=== PATIENT | female | born 1955 | race Caucasian/White ===

== ENCOUNTER 2018-12-05 17:19 | Inpatient (IN) | payer MEDICARE ==
[~2018-12-05] VITALS: Ht 158.8 cm; Wt 63.6 kg
[~2018-12-05 17:19] MED LIST: ANAS1TAB PO; ATOR10TA65 PO; DEXA4TAB PO; DICY10CA40 ORAL; FURO-110 PO; OMEP40CA6 PO; ONDA8TAB9 PO; SPIR25TA PO; ZOLP5TAB PO
[2018-12-05] MEDS ORDERED: SOD CHLORIDE 0.9% 1,000 ML IV STA (18:07)
[2018-12-05] MEDS ORDERED: ONDANSETRON 4 MG INJ IV STA (18:07)
[2018-12-05] MEDS ORDERED: NACL 0.9% 3 ML SYG IV SCH (21:30)
[2018-12-05] MEDS ORDERED: ACETAMINOPHEN 325 MG TAB PO PRN (21:30)
[2018-12-05] MEDS: HEPARIN 5,000 UNIT/1 ML VIAL SC SCH (21:59)
[2018-12-05] MEDS: SOD CHLORIDE 0.9% 1,000 ML IV SCH (21:59)
[2018-12-05] MEDS ORDERED: SOD CHLORIDE 0.9% 500 ML IV ONE (22:30)
[2018-12-06 00:50] VITALS: Ht 158.8 cm; Wt 63.6 kg
[2018-12-06 01:18] VITALS: BP 117/66; PULSE 93; RESP 18
[2018-12-06] MEDS ORDERED: ZOLPIDEM 5 MG TAB PO ONE (01:30)
[2018-12-06 04:35] VITALS: BP 94/56; PULSE 98; RESP 16
[2018-12-06] MEDS: HEPARIN 5,000 UNIT/1 ML VIAL SC SCH (06:00)
[2018-12-06] MEDS: ALBUMIN HUMAN 25% 100 ML IV SCH ×2 (06:25→09:18)
[2018-12-06] MEDS: PANTOPRAZOLE (EC) 40 MG TAB PO SCH (06:29)
[2018-12-06 07:18] VITALS: BP 108/64; PULSE 97; RESP 18
[2018-12-06] MEDS ORDERED: NON-FORMULARY/PATIENT OWN MED (Omeprazole* 40 MG) PO SCH (09:00)
[2018-12-06] MEDS: ANASTROZOLE 1 MG TAB PO SCH (10:28)
[2018-12-06] MEDS: SOD CHLORIDE 0.9% 1,000 ML IV SCH (10:30)
[2018-12-06 11:15] VITALS: BP_SYST 111; BP_SYST 114; BP_SYST 130; BP_DIAS 59; BP_DIAS 64; BP_DIAS 69; PULSE 99; RESP 18
[2018-12-06 15:20] VITALS: BP 112/61; PULSE 102; RESP 18
[2018-12-06] MEDS: DICYCLOMINE 10 MG CAP PO PRN (17:06)
[2018-12-06] MEDS: ONDANSETRON 4 MG INJ IV PRN (18:51)
[2018-12-06 19:15] VITALS: BP_SYST 125; BP_SYST 136; BP_SYST 139; BP_DIAS 69; BP_DIAS 70; BP_DIAS 77; PULSE 106; PULSE 111; PULSE 112; RESP 18
[2018-12-06] MEDS: ZOLPIDEM 5 MG TAB PO PRN (21:22)
[2018-12-07] VITALS: BP 106/66; PULSE 104; RESP 19
[2018-12-07 04:17] VITALS: BP 106/66; PULSE 104; RESP 19
[2018-12-07] MEDS: PANTOPRAZOLE (EC) 40 MG TAB PO SCH (06:24)
[2018-12-07 07:25] VITALS: BP 108/59; PULSE 105; RESP 18
[2018-12-07] MEDS: ANASTROZOLE 1 MG TAB PO SCH (09:21)
[2018-12-07 11:43] VITALS: BP 129/68; PULSE 101; RESP 18
[2018-12-07 15:34] VITALS: BP 119/68; PULSE 109; RESP 17
[2018-12-07] MEDS ORDERED: SOD CHLORIDE 0.9% 250 ML IV* ONE (15:55)
[2018-12-07 20:00] VITALS: BP 111/59; PULSE 104; RESP 18
[2018-12-07] MEDS: ZOLPIDEM 5 MG TAB PO PRN ×2 (21:42→23:13)
[2018-12-07] MEDS: ONDANSETRON 4 MG INJ IV PRN (21:42)
[2018-12-08] VITALS: BP 129/68; PULSE 107; RESP 18
[2018-12-08 04:00] VITALS: BP 113/65; PULSE 107; RESP 18
[2018-12-08] MEDS: PANTOPRAZOLE (EC) 40 MG TAB PO SCH (05:10)
[2018-12-08 07:20] VITALS: BP 119/73; PULSE 110; RESP 18
[2018-12-08] MEDS: ANASTROZOLE 1 MG TAB PO SCH (08:57)
[2018-12-08 11:20] VITALS: BP 121/64; PULSE 107; RESP 18
[2018-12-08 15:15] VITALS: BP 115/72; PULSE 111; RESP 15
[2018-12-08] MEDS: ONDANSETRON 4 MG INJ IV PRN (18:48)
[2018-12-08 19:50] VITALS: BP 104/59; PULSE 111; RESP 18
[2018-12-09] VITALS (7 sets, daily range): BP systolic 100–146; BP diastolic 55–75; PULSE 77–109; RESP 17–18
[2018-12-09] MEDS ORDERED: METOCLOPRAMIDE 10 MG INJ IV PRN
[2018-12-09] MEDS: ZOLPIDEM 5 MG TAB PO PRN ×2 (00:13→23:11)
[2018-12-09] MEDS ORDERED: ONDANSETRON INJ 8 MG in SOD CHLORIDE 0.9% 50 ML IV PRN ×2 (00:30→03:30)
[2018-12-09] MEDS ORDERED: ONDANSETRON 4 MG INJ IV PRN (03:30)
[2018-12-09] MEDS: PANTOPRAZOLE (EC) 40 MG TAB PO SCH (04:41)
[2018-12-09] MEDS: ANASTROZOLE 1 MG TAB PO SCH (09:35)
[2018-12-09] MEDS: DICYCLOMINE 10 MG CAP PO PRN ×3 (09:43→19:56)
[2018-12-10 04:00] VITALS: BP 99/55; PULSE 102; RESP 18
[2018-12-10] MEDS: PANTOPRAZOLE (EC) 40 MG TAB PO SCH (06:33)
[2018-12-10 07:23] VITALS: BP 97/58; PULSE 70; RESP 16
[2018-12-10] MEDS: ANASTROZOLE 1 MG TAB PO SCH (10:08)
[2018-12-10 11:29] VITALS: BP_SYST 105; BP_SYST 116; BP_SYST 134; BP_DIAS 66; BP_DIAS 69; BP_DIAS 77; PULSE 111; RESP 18
== END 2018-12-10 15:05 | disposition home or self-care (01) | DRG 641 ==
LOC: E/R 17:19 → TEL 21:13
PROVIDERS: ADMIT Family Medicine; ATTEND Family Medicine
PROC: 30233N1 Transfusion of Nonautologous Red Blood Cells into Peripheral Vein, Percutaneous Approach (ICD-10-PCS; principal; 2018-12-07)
DX: E86.0 Dehydration (principal); C22.1 Intrahepatic bile duct carcinoma; R18.0 Malignant ascites; N17.9 Acute kidney failure, unspecified; K76.6 Portal hypertension; R55 Syncope and collapse; D64.9 Anemia, unspecified; N18.9 Chronic kidney disease, unspecified; I25.10 Atherosclerotic heart disease of native coronary artery without angina pectoris
CPT/HCPCS: 36415; 36430; 70450; 71045; 72125; 76705; 76775; 80048; 80053; 80076; 83036; 83690; 83735; 83930; 84100; 84443; 84484; 85025; 86674; 86850; 86900; 86901; 86920; 87045; 87075; 93005; 93306; 96361; 96374; 97116; 97162; 97530; J2405; J2765; J7030; J7040; P9016; P9047